=== PATIENT | female | born 1965 | race Caucasian/White ===

== ENCOUNTER → 2024-07-08 08:37 | Outpatient (CLI) | payer OTHER, SELFPAY ==
--- NOTE | 2024-07-08 08:41 | DI.MRI.S_ITS ---
PROCEDURE: MR SHOULDER RT WO CON INDICATIONS: RIGHT SHOULDER PAIN TECHNIQUE: Noncontrast oblique coronal T2 fast spin echo with fat saturation, oblique sagittal T1 spin echo and T2 fast spin echo with fat saturation, axial T1 spin echo and T2 fast spin echo with fat saturation through the shoulder. COMPARISON: None. FINDINGS: Image quality: Excellent. Rotator cuff: Low-grade articular and bursal surface partial thickness tear involving distal supraspinatus at its insertion on the humeral head is seen extending to musculotendinous junction. Distal infraspinatus and subscapularis tendinosis is seen. No full-thickness rotator cuff tendon rupture. Sagittal images demonstrate no significant rotator cuff muscle atrophy. Bones and bursae: No bone marrow contusions or fractures. Mild to moderate acromioclavicular joint osteoarthritic changes are seen with joint space narrowing and downward osteophyte formation depressing the musculotendinous junction of supraspinatus. Type 1 acromion without an os acromiale. Small amount of joint effusion and subacromial subdeltoid bursal fluid, no loose bodies. Capsule and soft tissues: There is fraying of superior anterior labrum with T2 hyperintense signal suggestive of glenoid labral tear. The long head of the biceps tendon demonstrates normal location and morphology. The rotator interval appears normal, without fibrosis. The coracohumeral ligament is normal in thickness. IMPRESSION: 1. Low-grade articular and bursal surface partial thickness tear involving distal supraspinatus extending to musculotendinous junction. Distal infraspinatus and subscapularis tendinosis. No full-thickness rotator cuff tendon rupture. No muscle atrophy. 2. [id number] acromioclavicular joint osteoarthritis. No fracture or dislocation. Small amount of subacromial subdeltoid bursal fluid, no loose bodies. 3. Suggestion of superior anterior glenoid labral tear. Dictated by: Tushar Cedeno M.D. on 07/09/2024 at 17:43 Approved by: Tushar Cedeno M.D. on 07/09/2024 at 17:50
== END ==
LOC: MRI 08:39
PROVIDERS: PCP Family Medicine; Referring Provider Orthopaedic Surgery; Visit Provider Orthopaedic Surgery
DX: M75.41 Impingement syndrome of right shoulder (principal); M19.011 Primary osteoarthritis, right shoulder; M75.111 Incomplete rotator cuff tear or rupture of right shoulder, not specified as traumatic; M67.921 Unspecified disorder of synovium and tendon, right upper arm; M25.511 Pain in right shoulder
CPT/HCPCS: 73221

== ENCOUNTER → 2025-09-13 09:09 | Outpatient (CLI) | payer OTHER, SELFPAY ==
--- NOTE | 2025-09-13 09:11 | DI.MRI.S_ITS ---
PROCEDURE: MR KNEE RT WO CON INDICATIONS: acute medical meniscus tear of right knee TECHNIQUE: Noncontrast sagittal PD fast spin echo and T2 fast spin echo with fat saturation, sagittal 3-D FLASH with fat saturation; coronal T1 spin echo and PD fast spin echo with fat saturation, and axial PD fast spin echo with fat saturation through the knee. COMPARISON: None. FINDINGS: Image quality: Excellent. Menisci: The medial and lateral menisci demonstrate normal morphology and internal signal. The meniscal root ligaments appear intact. Cruciate ligaments: The anterior and posterior cruciate ligaments appear intact. Medial structures: The medial collateral ligament appears intact. The posterior oblique ligament, semimembranosus tendon insertions, oblique popliteal ligament, and meniscocapsular junction appear intact. Visualized portions of the pes anserinus tendons appear normal. No abnormal bursal fluid. Lateral structures: The biceps femoris tendon is intact. Mild sprain of the proximal fibular collateral ligament. The popliteus tendon and muscle are unremarkable. Anterior structures: The quadriceps tendon is intact. Mild tendinosis of the proximal patellar tendon. Patellar alignment is normal. No femoral trochlear dysplasia or ventral trochlear prominence. No edema in the infrapatellar fat pad. Bones and cartilage: Mild chondrosis of the medial compartment. Mild chondrosis of the lateral compartment. There is mild subchondral marrow edema at the posterior medial femoral condyle, at the insertion of the medial head of the gastrocnemius, reactive. Subjacent moderate tendinosis of the proximal medial head of the gastrocnemius. The mild subchondral cystic changes at the anterior medial tibial tuberosity, reactive. Moderate chondrosis of the patellofemoral compartment with multifocal moderate subchondral cystic changes. No acute fracture. Joint space: Small knee effusion. Trace popliteal cyst. Popliteal vasculature is unremarkable. No intra-articular body. IMPRESSION: 1. Intact meniscus. 2. Moderate tendinosis of the proximal medial head of the gastrocnemius with mild reactive subchondral marrow edema at the posterior medial femoral condyle. 3. Moderate, patellofemoral compartment predominant chondrosis. Dictated by: Leny Tracey M.D. on 09/13/2025 at 11:14 Approved by: Leny Tracey M.D. on 09/13/2025 at 11:31
== END ==
LOC: MRI 09:11
PROVIDERS: PCP Technician, Other; Referring Provider Orthopaedic Surgery Foot and Ankle Surgery; Visit Provider Orthopaedic Surgery Foot and Ankle Surgery
DX: S83.241A Other tear of medial meniscus, current injury, right knee, initial encounter (principal); M22.41 Chondromalacia patellae, right knee
CPT/HCPCS: 73721